=== PATIENT | female | born 1955 ===

== ENCOUNTER 2021-05-15 07:00 | Outpatient (CLI) | payer OTHER | END 2021-05-15 07:15 | disposition home or self-care (01) | LOC: PPH VACUNA 07:00 | PROVIDERS: ATTEND Emergency Medicine Pediatric Emergency Medicine | DX: Z23 Encounter for immunization (principal) ==

== ENCOUNTER 2021-12-09 08:00 | Outpatient (CLI) | payer OTHER | END 2021-12-09 08:30 | disposition home or self-care (01) | LOC: PPH VACUNA 08:00 | PROVIDERS: ATTEND Emergency Medicine Pediatric Emergency Medicine | DX: Z23 Encounter for immunization (principal) ==